=== PATIENT | female | born 1990 | race Caucasian/White ===

== ENCOUNTER → 2017-04-05 | Day surgery (SDC) | payer OTHER ==
[~2017-04-05] VITALS: Ht 157.5 cm; Wt 80.0 kg
[~2017-04-05] MED LIST: COSYNTROPIN INJ 1 MCG in SYRINGE 0 ML IV ONE; CYM/30 PO; LORA-741 PO; OMEP40CA41 PO; estrogen patch TD; progesterone TOP
[2017-04-05 07:39] VITALS: BP 128/77; PULSE 82; TEMP 36.6; O2SAT 97; Ht 157.5 cm; Wt 80.0 kg
[2017-04-05 08:55] LABS: ESTIMATED AVERAGE GLUCOSE 114 mg/dl; HA1C FLAG Normal (Normal)
[2017-04-05 09:03] LABS: BUN/CREATININE RATIO 9.2 (10-20); CALCIUM 8.9 mg/dl (8.5-10.1); CREATININE 0.84 mg/dl (0.60-1.20); POTASSIUM 3.4 mmol/L (3.5-5.1)
[2017-04-05 09:19] LABS: ALB/GLOB RATIO 1.2 (0.9-2); PHOSPHORUS 3.6 mg/dl (2.5-4.9); THYROID STIMULATING HORMONE 1.34 uIu/ml (0.300-4.500)
[2017-04-05 09:46] LABS: PROLACTIN 3.48 ng/mL
[2017-04-11 12:23] LABS: INSULIN LIKE GROWTH FACTOR-I 162 ng/mL (63-373); TESTOSTERONE,TOTAL 14 ng/dL (2-45)
== END | disposition home or self-care (01) ==
LOC: C.MTU 07:24
PROVIDERS: ATTEND Internal Medicine Endocrinology, Diabetes & Metabolism
DX: R53.83 Other fatigue (principal); E27.49 Other adrenocortical insufficiency

== ENCOUNTER → 2017-06-06 | Outpatient (CLI) | payer OTHER ==
[~2017-06-06] MED LIST changes: -COSYNTROPIN INJ 1 MCG in SYRINGE 0 ML IV ONE
== END | disposition home or self-care (01) ==
LOC: C.PAPS 14:11
PROVIDERS: ATTEND Obstetrics & Gynecology
DX: Z01.419 Encounter for gynecological examination (general) (routine) without abnormal findings (principal)

== ENCOUNTER → 2018-07-08 | Outpatient (CLI) | payer OTHER | END | disposition home or self-care (01) | LOC: C.LAB 14:45 | PROVIDERS: ATTEND Family Medicine | DX: N39.0 Urinary tract infection, site not specified (principal) ==

== ENCOUNTER 2023-11-28 17:14 | Inpatient (IN) ==
--- NOTE | 2023-11-28 17:29 | ED Triage Note ---
Date of Service November 28, 2023 Provider in Triage Author: Carlos Hdez History of Present Illness This patient was briefly evaluated while in triage. An abbreviated physical exam was performed. This patient is a 33-year-old Female who presents to the ED for evaluation of: Woke up with L arm pain yesterday am. Described as esther horse in left arm. Notes numbness and tingling. Tried OTC medicines and minimal help/relief. Seen by chiropractor. Seen in [facility] ED yesterday and had injection of muscle relaxer and toradol, Lortab. Shoulder xray and discharged home. Back to chiropractor. Cervical traction relieved pain. Iced and placed on prediosone, lortab and flexeril. Today back to chiropractor. Had cervical traction and return of pain. Fingers tingling and numb. Started yesterday AM. Physical Exam GENERAL: 33 year old female. In no acute distress. SKIN: No lesions or rashes. HEART: Regular rate and rhythm. LUNGS: Clear to auscultation. NEURO: Alert and oriented. No deficits. MUSCULOSKELETAL: No deformities to inspection of the extremities. PSYCH: Patient is pleasant and answers all questions appropriately. Initial orders for labs and / or imaging were placed. MRI of neck felt to be war ranted.
[2023-11-28] MEDS ORDERED: diazePAM 5 MG TABLET PO ONE (18:16)
[2023-11-28 18:34] LABS: Basophils # (auto) 0.02 K/uL (0.00-0.20); Basophils % (auto) 0.2 %; Hematocrit (blood only) 34.4 % (37.0-47.0); Hemoglobin 12.1 g/dl (12.0-16.0); Immature Granulocytes # (auto) 0.06 K/uL (0.01-0.20); Immature Granulocytes % (auto) 0.5 %; Lymphocytes # (auto) 1.49 K/uL (1.20-3.40); Mean Corpuscular Hemoglobin 31.8 pg (25.0-34.0); Mean Corpuscular Hgb Conc 35.2 g/dL (32.0-36.0); Mean Corpuscular Volume 90.3 fL (80.0-100.0); Mean Platelet Volume 10.7 fL (9.4-12.4); Monocytes # (auto) 0.55 K/uL (0.11-0.59); Monocytes % (auto) 4.4 %; Neutrophils # (auto) 10.26 K/uL (1.40-6.50); Neutrophils % (auto) 82.9 %; Platelet Count 285 K/uL (130-400); RDW Coefficient of Variation 12.8 % (11.5-14.5); RDW Standard Deviation 41.7 fL (36.4-46.3); Red Blood Count 3.81 M/uL (4.20-5.40); White Blood Count 12.38 K/ul (4.8-10.8)
[2023-11-28 18:52] LABS: Alanine Aminotransferase 33 U/L (7-52); Albumin Globulin Ratio 1.5 (0.9-2); Albumin Level 4.6 gm/dl (3.4-5.0); Alkaline Phosphatase 62 U/L (34-104); Anion Gap 9 (3-11); Aspartate Aminotransferase 37 U/L (13-39); BUN Creatinine Ratio 8.8 (10-20); Bilirubin,Total 0.3 mg/dl (0.2-1.0); Blood Urea Nitrogen 7 mg/dl (6-23); Calcium 9.4 mg/dl (8.6-10.3); Carbon Dioxide 27 mmol/L (21-32); Chloride 105 mmol/L (98-107); Est GFR (African American) 111.5 ml/min; Est GFR (Non-African American) 96.2 ml/min; Globulin 3.1 gm/dl (2.5-4.0); Glucose 89 mg/dl (70-99(Fasting)); Potassium 3.1 mmol/L (3.5-5.1); Sodium 141 mmol/L (136-145); Total Protein 7.7 gm/dl (6.0-8.3)
[2023-11-28] MEDS ORDERED: HYDROmorphone INJ 0.5 MG/0.5 ML SYR IV STA ×4 (18:57→23:46)
[2023-11-28] MEDS ORDERED: ONDANSETRON INJ 2 MG/ML 2 ML VIAL IV STA (18:58)
[2023-11-28] MEDS ORDERED: dexAMETHasone**PF** 10 MG/ML VIAL IV ONE (19:10)
--- NOTE | 2023-11-28 19:20 | Emergency Department Note ---
History of Present Illness General Chief complaint: Neuro Symptoms/Deficit Stated complaint: LT ARM NUMB/PAINFUL, WEAKNESS, NECK PAIN Time Seen by Provider: 11/28/23 17:30 History of Present Illness Maximum Pain Intensity: 9 This is a 33-year-old female that presents to the emergency department via private vehicle with complaints of "left-sided neck/left arm pain". Patient notes that this past Sunday morning she awoke with discomfort in the left shoulder region that radiated down the left arm. She notes the pain is severe and when she lifts the left arm and hold it over her head the pain is more of a throbbing sensation and is more bearable than when the arm is dependently positioned at her side. She has been seen by her chiropractor x 2 for evaluation of this and notes that when cervical traction is applied pain is completely alleviated however when the traction is stopped the pain returns. She notes that she was seen at the [place] emergency department yesterday and had injection of a muscle relaxer, Toradol and oral Lortab. She had a shoulder x-ray and she notes she was discharged home. She states that pain continues and is severe. She denies any fevers or chills. No vomiting. No chest pain or shortness of breath. No speech trouble or weakness. She does note that the pain radiates from the left side of the neck down the left arm and she has numbness/tingling in fingers 2 through 5 of the left hand. Home Medications Medication Instructions Recorded Confirmed Type Vitamin D, Zinc & Vitamin C 1 tab PO DAILY 11/28/23 11/29/23 History bupropion HCl 150 mg tablet,12 hr 300 mg PO QAM 11/28/23 11/28/23 History sustained-release cyclobenzaprine 10 mg tablet 10 mg PO DIRECTED PRN Muscle 11/28/23 11/28/23 History Spasm estradiol 1 mg tablet 1 mg PO DAILY 11/28/23 11/28/23 History famotidine 40 mg tablet 40 mg PO DAILY PRN Acid Reflux 11/28/23 11/29/23 History hydrocodone 5 mg-acetaminophen 325 1 tab PO Q6 PRN Pain 11/28/23 11/29/23 History mg tablet levothyroxine 75 mcg tablet 75 mcg PO DAILY 11/28/23 11/29/23 History linaclotide 72 mcg capsule 72 mcg PO DAILY 11/28/23 11/29/23 History (Linzess) naltrexone 50 mg tablet 50 mg PO DAILY 11/28/23 11/29/23 History pantoprazole 40 mg tablet,delayed 40 mg PO DAILY 11/28/23 11/28/23 History release prednisone 20 mg tablet 20 mg PO BID 11/28/23 11/28/23 History simvastatin 5 mg tablet 5 mg PO HS 11/28/23 11/28/23 History triamcinolone acetonide 0.1 % 1 applic topical DIRECTED PRN 11/28/23 11/28/23 History topical cream .flare ups Allergies Allergy/AdvReac Type Severity Reaction Status Date / Time cefaclor [From [facility]] Allergy Mild Hives/Rash Verified 11/29/23 00:05 nickel Allergy Mild RASH, Verified 11/29/23 00:05 itch, skin irritation Past Med/Surg History Medical History Hyperlipidemia History of COVID-19 10/31/2021 - mild symptoms fatigue, sob and no current issues Chronic constipation GERD (gastroesophageal reflux disease) 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 she is tolerating thyroid medications Depression Anxiety Surgical History Hx of colonoscopy Hx of esophagogastroduodenoscopy History of tonsillectomy and adenoidectomy Hx of laparoscopy endometriosis, ovarian cystectomy Hx of exploratory laparotomy after c section hemorrhage second laparotomy to remove uterus, tubes, ovaries Hx of section complication due to bleeding, had laparotomy and could not find the source of bleeding and was lifeflighted to [place] - possible cardiac arrest on flight [place] and had muliple transfusions (34 units in 24 hrs) and was on vent and had intervention radiology procedure to repair right uterine artery and then EUA and found laceration on cervix and then repaired it. was stabilized that evening and the next day taken to OR for hysterectomy and tubes and ovaries were removed History of hysterectomy was post childbirth c section complication hemorrage Social History Smoking Status: Current every day smoker Tobacco Type: E-cigarettes / Vaping packs per day: 0.1; Cigarettes Per Day: 2-3 days; Second Hand Exposure: No; Do You Dip or Chew Tobacco: No; Hx Alcohol Use: Yes Alcohol type: beer and wine Hx Substance Use: No Preferred Language: Argentine Communication Ability: Effective Chemical Research Worker Required: No Beliefs That Will Affect Care: None Current Living Situation: Family current occupational status: employed Other Information That Helps Us Care for You: No Feels Safe at Home: Yes Safety Concerns: Feels Safe At This Time Assistive Devices: Glasses Review of Systems A total of 10 systems reviewed and were otherwise negative Physical Exam Vital Signs Vital Signs - 24 hr 11/28/23 17:25 11/28/23 19:22 11/28/23 19:22 Temperature 36.2 C L Temperature Source Temporal Artery Scan Pulse Rate 116 H Pulse Rate [Finger] Respiratory Rate 20 Respiratory Depth Blood Pressure 126/84 Blood Pressure [Left Arm] Blood Pressure Mean 98 Blood Pressure Mean [Left Arm] Blood Pressure Position [Left Arm] Pulse Oximetry 100 98 Oxygen Delivery Method Room Air Room Air Room Air Sepsis Recent Fever Within 48 Hours No Sepsis New/Unexplained Change in Mental Status N/A Sepsis Action Taken by Nursing No Action Required 11/28/23 23:40 Temperature Temperature Source Pulse Rate Pulse Rate [Finger] 84 Respiratory Rate 18 Respiratory Depth Normal Blood Pressure Blood Pressure [Left Arm] 128/77 Blood Pressure Mean Blood Pressure Mean [Left Arm] 94 Blood Pressure Position [Left Arm] Semi-fowlers Pulse Oximetry 100 Oxygen Delivery Method Room Air Sepsis Recent Fever Within 48 Hours Sepsis New/Unexplained Change in Mental Status Sepsis Action Taken by Nursing VITAL SIGNS - Vital signs and nursing notes were reviewed. Stable and afebrile. GENERAL -33-year-old female appearing her stated age who appears to be in pain and is tearful. Communicates well with provider and answers questions appropriately. SKIN - Without rashes. No meningeal or petechial rash. The skin overlying the neck and arm is unremarkable. No erythema or edema. HEAD - NC/AT. EYES - PERRL with EOMI bilaterally. Sclera anicteric. EARS - No deformities of external structures noted on gross examination bilaterally. NOSE - Midline and without cyanosis. No epistaxis or purulent drainage noted. MOUTH/OROPHARYNX - Without perioral cyanosis. NECK - No nuchal rigidity. There is tenderness and palpable spasm throughout the trapezius muscle superiorly on the left extending from the paraspinous musculature of the C-spine towards the left shoulder. No C-spine tenderness. LUNGS - Chest wall symmetric without accessory muscle use, intercostals retractions, or central cyanosis. Normal vesicular breath sounds CTA B/L. No wheezes, rales, or rhonchi appreciated. CARDIAC - RRR with S1/S2. No murmur, rubs, or gallops appreciated. EXTREMITIES - No clubbing or peripheral cyanosis. Preserved full active range of motion of left upper extremity, specifically left shoulder without reproduction of symptoms. Left bicep reflex within normal limits. Biodiesel Production Technician strength on the left mildly decreased compared to the right on initial assessment however will note that after pain medicine was administered as well as steroids reassessment reveals symmetric soda dispenser strength bilaterally. NEUROLOGIC - Cranial nerves II through XII grossly intact. PSYCH - A&Ox3 and cooperates fully with examiner. Pt is very pleasant and interacts well with examiner. Course Administered Medications Acetaminophen (Acetaminophen 500 Mg Tab) 1,000 mg PO Q8H MEENU Stop: 12/29/23 00:59 Last Admin: 11/29/23 00:58 Dose: 1,000 mg Documented By: ROSE MARIE Hydromorphone HCl (Hydromorphone Inj 0.5 Mg/0.5 Ml Syr) 0.5 mg IV Q6H PRN PRN Reason: Pain Stop: 12/13/23 00:33 Last Admin: 11/29/23 02:38 Dose: 0.5 mg Documented By: AUSTIN Ketorolac Tromethamine (Ketorolac Tromethamine 15 Mg/Ml Vial) 15 mg IV Q6H MEENU Stop: 11/29/23 20:01 Last Admin: 11/29/23 02:02 Dose: 15 mg Documented By: AUSTIN Polyethylene Glycol (Polyethylene (Miralax) 17 Gm Pack) 17 gm PO DAILY PRN PRN Reason: Constipation Stop: 12/29/23 00:33 Last Admin: 11/29/23 02:38 Dose: 17 gm Documented By: AUSTIN Discontinued Medications Acetaminophen (Acetaminophen 500 Mg Tab) 500 mg PO NOW STA Stop: 11/28/23 20:29 Last Admin: 11/28/23 20:37 Dose: 500 mg Documented By: LUANA Dexamethasone Sodium Phosphate (DexamethasonePf 10 Mg/Ml Vial) 10 mg IV NOW ONE Stop: 11/28/23 19:11 Last Admin: 11/28/23 19:14 Dose: 10 mg Documented By: KATIE Diazepam (Diazepam 5 Mg Tablet) 5 mg PO NOW ONE Stop: 11/28/23 18:17 Last Admin: 11/28/23 18:22 Dose: 5 mg Documented By: HALIMA Hydromorphone HCl (Hydromorphone Inj 0.5 Mg/0.5 Ml Syr) 0.5 mg IV NOW STA Stop: 11/28/23 18:58 Last Admin: 11/28/23 19:03 Dose: 0.5 mg Documented By: KATIE Hydromorphone HCl (Hydromorphone Inj 0.5 Mg/0.5 Ml Syr) 0.25 mg IV NOW STA Stop: 11/28/23 20:29 Last Admin: 11/28/23 20:38 Dose: 0.25 mg Documented By: LUANA Hydromorphone HCl (Hydromorphone Inj 0.5 Mg/0.5 Ml Syr) 0.25 mg IV NOW STA Stop: 11/28/23 21:47 Last Admin: 11/28/23 21:52 Dose: 0.25 mg Documented By: KATIE Hydromorphone HCl (Hydromorphone Inj 0.5 Mg/0.5 Ml Syr) 0.25 mg IV NOW STA Stop: 11/28/23 23:47 Last Admin: 11/28/23 23:53 Dose: 0.25 mg Documented By: ROSE MARIE Hydroxyzine HCl (Hydroxyzine Hcl 25 Mg Tab) 25 mg PO NOW STA Stop: 11/29/23 00:44 Last Admin: 11/29/23 00:57 Dose: 25 mg Documented By: ROSE MARIE Ketorolac Tromethamine (Ketorolac Tromethamine 15 Mg/Ml Vial) 10 mg IV NOW ONE Stop: 11/28/23 20:29 Last Admin: 11/28/23 20:37 Dose: 10 mg Documented By: LUANA Lidocaine (Lidocaine 5% 1 Patch) 1 patch TD NOW STA Stop: 11/28/23 20:29 Last Admin: 11/28/23 20:37 Dose: 1 patch Documented By: LUANA Miscellaneous (Remove Lidoderm Patch) 1 each N/A DAILY@2100 MEENU Stop: 12/28/23 20:59 Last Admin: 11/28/23 23:02 Dose: Not Given Documented By: KATIE Ondansetron HCl (Ondansetron Inj 2 Mg/Ml 2 Ml Vial) 4 mg IV NOW STA Stop: 11/28/23 18:59 Last Admin: 11/28/23 19:03 Dose: 4 mg Documented By: KATIE Prednisone (Prednisone 20 Mg Tab) 40 mg PO NOW ONE Stop: 11/29/23 00:40 Last Admin: 11/29/23 00:57 Dose: 40 mg Documented By: ROSE MARIE Medical Decision Making Laboratory Data 11/28/23 18:14 11/28/23 18:14 Lab Results 11/28/23 Range/Units 18:14 WBC 12.38 H (4.8-10.8) K/ul RBC 3.81 L (4.20-5.40) M/uL Hgb 12.1 (12.0-16.0) g/dl Hct 34.4 L (37.0-47.0) % MCV 90.3 (80.0-100.0) fL MCH 31.8 (25.0-34.0) pg MCHC 35.2 (32.0-36.0) g/dL RDW Std Deviation 41.7 (36.4-46.3) fL RDW Coeff of Sarai 12.8 (11.5-14.5) % Plt Count 285 (130-400) K/uL MPV 10.7 (9.4-12.4) fL Immature Gran % (Auto) 0.5 % Neut % (Auto) 82.9 % Lymph % (Auto) 12.0 % [place] % (Auto) 4.4 % Eos % (Auto) 0.0 % Baso % (Auto) 0.2 % Neut # (Auto) 10.26 H (1.40-6.50) K/uL Lymph # (Auto) 1.49 (1.20-3.40) K/uL [place] # (Auto) 0.55 (0.11-0.59) K/uL Eos # (Auto) 0.00 (0.00-0.50) K/uL Baso # (Auto) 0.02 (0.00-0.20) K/uL Immature Gran # (Auto) 0.06 (0.01-0.20) K/uL Sodium 141 (136-145) mmol/L Potassium 3.1 L (3.5-5.1) mmol/L Chloride 105 (98-107) mmol/L Carbon Dioxide 27 (21-32) mmol/L Anion Gap 9 (3-11) BUN 7 (6-23) mg/dl Creatinine 0.80 (0.6-1.2) mg/dl Est Cr Clr Drug Dosing Not Reportable Est GFR ( Amer) 111.5 ml/min Est GFR (Non-Af Amer) 96.2 ml/min BUN/Creatinine Ratio 8.8 L (10-20) Glucose 89 (70-99(Fasting)) mg/dl Calcium 9.4 (8.6-10.3) mg/dl Total Bilirubin 0.3 (0.2-1.0) mg/dl AST 37 (13-39) U/L ALT 33 (7-52) U/L Alkaline Phosphatase 62 (34-104) U/L Total Protein 7.7 (6.0-8.3) gm/dl Albumin 4.6 (3.4-5.0) gm/dl Globulin 3.1 (2.5-4.0) gm/dl Albumin/Globulin Ratio 1.5 (0.9-2) Imaging Data Radiologist's Impression: Cervical Spine MRI 11/28/23 17:30 Exam(s): MRI C SPINE EXAM: MR Cervical Spine Without Intravenous Contrast CLINICAL HISTORY: Reason for exam: L sided neck and L arm pain, L hand numb, weakness. TECHNIQUE: Magnetic resonance images of the cervical spine without intravenous contrast in multiple planes. Mild to moderate motion artifact. COMPARISON: None. FINDINGS: Vertebrae: No marrow edema or compression deformity. Spinal cord: No abnormal signal. Soft tissues: No prevertebral or interspinous ligamentous edema. No epidural hematoma or abscess. DISCS/SPINAL CANAL/NEURAL FORAMINA: C2-C3: Unremarkable. C3-C4: Unremarkable. C4-C5: Mild degenerative disc disease. C5-C6: Moderate, broad-based left-sided disc herniation, contacts the ventral cord, with borderline left-central spinal stenosis, and severe left lateral recess and left foraminal stenosis. C6-C7: Mild degenerative disc disease. C7-T1: Unremarkable. OTHER: Disc heights are well preserved other than narrowing at C5-6. No other disc herniation. Other than the changes at C5-6, central canal is otherwise patent. Facet joints show mild hypertrophy. IMPRESSION: 1. At C5-6, there is a left sided disc herniation with borderline left- central spinal stenosis, severe left lateral recess and left foraminal stenosis. 2. Mild degenerative change C4-5 and C6-7. 3. No other disc herniation, central canal is otherwise patent. Electronically signed by: Pinky Denson M.D. 11/28/23 22:48 PM MDM Narrative Patient was seen and evaluated as above in room D05. Review was performed of triage nursing notes and vital signs. I did review pertinent previous visits and patient history. After obtaining a thorough history and physical examination the above work up was performed. Patient presents to us today for evaluation of left-sided neck pain that radiates down the left arm. Examination consistent with that of cervical radiculopathy. There is decreased soda dispenser strength on the left compared to the right on initial assessment. Patient is tearful and appears to be in a lot of pain. She was already evaluated at a hospital yesterday and given IM medications and oral analgesics at home and continues with severe pain. Options of care were discussed with the patient. IV access was established. Labs were drawn. There is mild leukocytosis 12.38 likely reactive to the patient's pain response/stress response as well as recent oral steroid use. The patient does have mild hypokalemia 3.1. No evidence of kidney or liver failure. She denies chance of noting hysterectomy. At this time we will proceed with MRI of the C-spine noting the patient's severity of pain and decreased soda dispenser strength on the left with examination consistent with that of cervical radiculopathy. During her time here in the ED she was managed with several medications to help alleviate her pain. The patient did note claustrophobia so therefore prior to MRI was given Valium. She noted she had Valium before for an MRI and had no issues. 5 mg was given here. She notes that the medicine did very little. She does not feel she would be able to lay flat or tolerate the MRI and is still in tears. At that time I did agree to a dose of IV analgesics but did wait some time to space the oral benzodiazepine from IV analgesics. The IV analgesics was provided and pulse oximetry monitoring was performed, no desaturations here in the ED. At this time we will proceed with cervical spine MRI. For safety, I did ask staff that the patient have monitoring well in the MRI scanner to ensure no hypoxia as she did receive medications here in the ED to help her symptoms. While in MRI the patient was monitored on pulse oximetry and reportedly there was a small episode of mild hypoxia and started on oxygen and continue to be monitored as I had requested. Patient continued to do very well with the MRI and upon return noted continued pain. MRI was ultimately read after some time revealing at C5-C6, left-sided disc herniation with borderline left central spinal stenosis, severe left lateral recess and left foraminal stenosis. This does fit with the patient's examination findings and history. The patient did recall that the day prior to the start of the symptoms she was carrying some totes on her head noting that the shelf is the same height as her head and she found it easier to place them on her head to carry them. I suspect this is likely contributory to her symptoms at this time. The patient despite several medications here continues with pain. In discussing options with the patient we will proceed with inpatient management for intractable pain. She also received steroids here. Case discussed with the hospitalist service. Please refer to further documentation regarding her stay. GCS: 15 In the evaluation and treatment of this patient the following differential diagnoses were entertained: Cervical radiculopathy, dissection, strain, sprain, infection, among others Impression & Plan Cervical herniated disc, Left cervical radiculopathy, Intractable cervical neuropathic pain, Abnormal magnetic resonance imaging of cervical spine Discharge Plan Visit Data Chief Complaint: Neuro Symptoms/Deficit Stated Complaint: LT ARM NUMB/PAINFUL, WEAKNESS, NECK PAIN ED Provider: Marcel Bender ED Midlevel Provider: Carlos Hdez Discharge Problem: Cervical herniated disc, Left cervical radiculopathy, Intractable cervical neuropathic pain, Abnormal magnetic resonance imaging of cervical spine Patient Disposition: Admitted As Inpatient Condition: Good Discharge Instructions Interventions: ED Discharge Assessment Last Done: 11/29/23 01:54
[2023-11-28] MEDS ORDERED: ACETAMINOPHEN 500 MG TAB PO STA (20:28)
[2023-11-28] MEDS ORDERED: LIDOCAINE 5% 1 PATCH TD STA (20:28)
[2023-11-28] MEDS ORDERED: KETOROLAC TROMETHAMINE 15 MG/ML VIAL IV ONE (20:28)
--- NOTE | 2023-11-28 22:50 | Magnetic Resonance Report ---
Exam(s): MRI C SPINE EXAM: MR Cervical Spine Without Intravenous Contrast CLINICAL HISTORY: Reason for exam: L sided neck and L arm pain, L hand numb, weakness. TECHNIQUE: Magnetic resonance images of the cervical spine without intravenous contrast in multiple planes. Mild to moderate motion artifact. COMPARISON: None. FINDINGS: Vertebrae: No marrow edema or compression deformity. Spinal cord: No abnormal signal. Soft tissues: No prevertebral or interspinous ligamentous edema. No epidural hematoma or abscess. DISCS/SPINAL CANAL/NEURAL FORAMINA: C2-C3: Unremarkable. C3-C4: Unremarkable. C4-C5: Mild degenerative disc disease. C5-C6: Moderate, broad-based left-sided disc herniation, contacts the ventral cord, with borderline left-central spinal stenosis, and severe left lateral recess and left foraminal stenosis. C6-C7: Mild degenerative disc disease. C7-T1: Unremarkable. OTHER: Disc heights are well preserved other than narrowing at C5-6. No other disc herniation. Other than the changes at C5-6, central canal is otherwise patent. Facet joints show mild hypertrophy. IMPRESSION: 1. At C5-6, there is a left sided disc herniation with borderline left- central spinal stenosis, severe left lateral recess and left foraminal stenosis. 2. Mild degenerative change C4-5 and C6-7. 3. No other disc herniation, central canal is otherwise patent. Electronically signed by: Pinky Denson M.D. 11/28/23 22:48 PM
--- NOTE | 2023-11-28 23:52 | History & Physical Report ---
Date of Service November 28, 2023 Assessment & Plan (1) Cervical herniated disc: Plan: Pt is a 33 yo female with PMH of hypothyroidism, HLD, GERD, and depression/anxiety presenting to the ER d/t increased neck/shoulder pain. Cervical herniated disc - noted at level C5-C6 on cervical MRI with associated left sided weakness and central spinal stenosis - s/p valium 5 mg, dilaudid 0.25mg x3, dilaudid 0.5mg, zofran 4 mg, dexamethasone 10 mg, toradol 10 mg, and tylenol 500 mg given in ED - continue pain control; tylenol 1000mg q8hr, toradol 15 mg q6hr x4, and dilaudid 0.5 mg q6hr PRN for breakthrough - given prednisone 40 mg x1 upon admission; may continue if felt to significantly help with the pain - ortho spine consulted in addition to pain management for possibility of injection Hypothyroidism - continue home levothyroxine 75 mcg daily GERD - continue home PPI and famotidine Chronic constipation - continue home linzess and miralax PRN 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 Pt states she woke up yesterday morning with left shoulder pain similar to a muscle spasm. She had numbness/tingling that radiated down her arm. She saw a chiropractor d/t this pain and he referred her to the [facility] ER; they gave her a muscle relaxer and steroid and discharged her home. She returned to her chiropractor who performed cervical traction and a gentle adjustment which helped in the moment but the pain came back upon sitting up. She went back to her chiropractor today and he again did cervical traction. This again helped in the moment but the pain came back after sitting up. She was in contact with her PCP who advised her to come to the ER for further work up. Since then, her pain has been worsening and unbearable at points. She is uncomfortable in a sitting position. Sometimes the pain is relieved when her hand is over her head, but now she is also experiencing a dull ache in this position. Upon further reflection, she is wondering if putting away her [employer] decorations on Sunday contributed to her current pain. She was on a 5- step ladder reaching to a shelf above her head and she would put the storage totes on top of her head to transfer them. Otherwise, no injury noted. No hx of neck/spine problems. In the ER, pt was hemodynamically stable. Her lab work was significant for WBC 12.38, Hgb 12.1, platelets 285, and K 3.1. An MRI of her cervical spine showed a left sided disc herniation at C5-C6 with borderline central spinal stenosis. There were degenerative changes noted at C4-C5 and C6-C7. Pt was given valium 5 mg, dilaudid 0.25mg x3, dilaudid 0.5mg, zofran 4 mg, dexamethasone 10 mg, toradol 10 mg, and tylenol 500 mg. Allergies Allergy/AdvReac Type Severity Reaction Status Date / Time cefaclor [From [facility]] Allergy Mild Hives/Rash Verified 11/29/23 00:05 nickel Allergy Mild RASH, Verified 11/29/23 00:05 itch, skin irritation Home Medications Medication Instructions Recorded Confirmed Type Vitamin D, Zinc & Vitamin C 1 tab PO DAILY 11/28/23 11/29/23 History bupropion HCl 150 mg tablet,12 hr 300 mg PO QAM 11/28/23 11/28/23 History sustained-release cyclobenzaprine 10 mg tablet 10 mg PO DIRECTED PRN Muscle 11/28/23 11/28/23 History Spasm estradiol 1 mg tablet 1 mg PO DAILY 11/28/23 11/28/23 History famotidine 40 mg tablet 40 mg PO DAILY PRN Acid Reflux 11/28/23 11/29/23 History hydrocodone 5 mg-acetaminophen 325 1 tab PO Q6 PRN Pain 11/28/23 11/29/23 History mg tablet levothyroxine 75 mcg tablet 75 mcg PO DAILY 11/28/23 11/29/23 History linaclotide 72 mcg capsule 72 mcg PO DAILY 11/28/23 11/29/23 History (Linzess) naltrexone 50 mg tablet 50 mg PO DAILY 11/28/23 11/29/23 History pantoprazole 40 mg tablet,delayed 40 mg PO DAILY 11/28/23 11/28/23 History release prednisone 20 mg tablet 20 mg PO BID 11/28/23 11/28/23 History simvastatin 5 mg tablet 5 mg PO HS 11/28/23 11/28/23 History triamcinolone acetonide 0.1 % 1 applic topical DIRECTED PRN 11/28/23 11/28/23 History topical cream .flare ups Past Med/Surg History Medical History Hyperlipidemia History of COVID-19 10/31/2021 - mild symptoms fatigue, sob and no current issues Chronic constipation GERD (gastroesophageal reflux disease) 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 she is tolerating thyroid medications Depression Anxiety Surgical History Hx of colonoscopy Hx of esophagogastroduodenoscopy History of tonsillectomy and adenoidectomy Hx of laparoscopy endometriosis, ovarian cystectomy Hx of exploratory laparotomy after c section hemorrhage second laparotomy to remove uterus, tubes, ovaries Hx of section complication due to bleeding, had laparotomy and could not find the source of bleeding and was lifeflighted to [place] - possible cardiac arrest on flight DIC and had muliple transfusions (34 units in 24 hrs) and was on vent and had intervention radiology procedure to repair right uterine artery and then EUA and found laceration on cervix and then repaired it. was stabilized that evening and the next day taken to OR for hysterectomy and tubes and ovaries were removed History of hysterectomy was post childbirth c section complication hemorrage Social History Smoking Status: Current every day smoker Tobacco Type: E-cigarettes / Vaping packs per day: 0.1; Cigarettes Per Day: 2-3 days; Second Hand Exposure: No; Do You Dip or Chew Tobacco: No; Hx Alcohol Use: Yes Alcohol type: beer and wine Hx Substance Use: No Preferred Language: Hungarian Communication Ability: Effective Dag Sprayer Required: No Beliefs That Will Affect Care: None Current Living Situation: Family current occupational status: employed Other Information That Helps Us Care for You: No Feels Safe at Home: Yes Safety Concerns: Feels Safe At This Time Assistive Devices: Glasses Review of Systems Review of Systems: As per HPI Physical Exam Physical Exam: Constitutional: well appearing, mild distress HEENT: normocephalic, no conjunctival injection CV: clinically well perfused Respiratory: no increased work of breathing MSK: no gross deformities noted Skin: warm, dry, no rashes Neuro: alert, oriented, left arm weakness noted. 3/5 strength with left arm flexion/extension and shoulder abduction all of which caused some pain in her neck. Right arm 5/5 strength. Psych: mood and affect congruent Results & Data Results & Data Vital Signs (Past 12 Hours) Vital Signs Temp Pulse Pulse Resp BP BP Pulse Ox 11/28/23 23:40 84 18 128/77 100 11/28/23 19:22 98 11/28/23 19:22 11/28/23 17:25 36.2 C L 116 H 20 126/84 100 O2 Del Method 11/28/23 23:40 Room Air 11/28/23 19:22 Room Air 11/28/23 19:22 Room Air 11/28/23 17:25 Room Air Supervising Physician Co-Signing Physician Notes Patient seen and examined, chart reviewed, case discussed with Dr. Jensen and I agree with the assessment and plan as above Resident Activity Tracking Resident Involvement: Resident Care Provided Care Provided: Adult Hospital Medicine
[2023-11-29] MEDS ORDERED: MELATONIN 3 MG TAB PO PRN (00:34)
[2023-11-29] MEDS ORDERED: predniSONE 20 MG TAB PO ONE (00:39)
[2023-11-29] MEDS ORDERED: hydrOXYzine HCl 25 MG TAB PO STA (00:43)
[2023-11-29] MEDS: ACETAMINOPHEN 500 MG TAB PO SCH ×4 (00:58→23:50)
[2023-11-29] MEDS ORDERED: CYCLOBENZAPRINE HCL 10 MG TAB PO PRN (01:56)
[2023-11-29] MEDS ORDERED: FAMOTIDINE 40 MG TABLET PO PRN (01:56)
[2023-11-29] MEDS: KETOROLAC TROMETHAMINE 15 MG/ML VIAL IV SCH ×2 (02:02→07:42)
[2023-11-29] MEDS: POLYETHYLENE (MIRALAX) 17 GM PACK PO PRN (02:38)
[2023-11-29] MEDS: HYDROmorphone INJ 0.5 MG/0.5 ML SYR IV PRN ×4 (02:38→20:57)
--- NOTE | 2023-11-29 03:39 | Billing Data ---
Date of Service November 29, 2023 Coding Level of Care Code 41275 INT INP/OBS CARE
[2023-11-29] MEDS: LEVOTHYROXINE SODIUM 75 MCG TABLET PO SCH (06:21)
[2023-11-29] MEDS: buPROPion SR 150 MG TABCR PO SCH (08:28)
[2023-11-29] MEDS: PANTOprazole 40 MG TAB PO SCH (08:29)
[2023-11-29] MEDS: linaCLOtide 72 MCG CAPSULE PO SCH (08:29)
[2023-11-29] MEDS: estradioL 1 MG TAB PO SCH (08:29)
--- NOTE | 2023-11-29 08:53 | Orthopedic Consultation ---
Date of Consultation November 29, 2023 Assessment & Plan (1) Herniation of cervical intervertebral disc with radiculopathy: MRI of the cervical spine performed yesterday is available for review demonstrates massive disc herniation C5-C6 on the left. There is cord displacement. There is severe neuroforaminal encroachment on the left. Plan I had a lengthy discussion today with the patient reviewing her MRI findings and clinical presentation. This time her options are to continue with pain management interventional pain management or ultimately surgical intervention surgery in her case would require an anterior cervical discectomy and fusion to adequately decompress the canal and neuroforamen. This point she is going to consider her options most likely pursue cervical epidurals. If she fails to improve we may have to consider surgical invention. History of Present Illness Reason for Consultation: Neck and left arm pain Attending Physician: Jayson Bush MD History of Present Illness This is a very pleasant 33-year-old female who presents with severe left arm pain. She states the symptoms began on Sunday. She did attempt to few sessions of patient care provider which did not alleviate her symptom complex. The pain is described as radiating down the left interscapular region down the lateral arm below the elbow into the lateral fingers. The right upper extremity symptomatic. She is left-hand dominant. She denies any specific trauma fall or event. She does find comfort holding her arm and particularly in the shoulder abduction position. Allergies Allergy/AdvReac Type Severity Reaction Status Date / Time cefaclor [From [facility]] Allergy Mild Hives/Rash Verified 11/29/23 00:05 nickel Allergy Mild RASH, Verified 11/29/23 00:05 itch, skin irritation Home Medications Medication Instructions Recorded Confirmed Type Vitamin D, Zinc & Vitamin C 1 tab PO DAILY 11/28/23 11/29/23 History bupropion HCl 150 mg tablet,12 hr 300 mg PO QAM 11/28/23 11/28/23 History sustained-release cyclobenzaprine 10 mg tablet 10 mg PO DIRECTED PRN Muscle 11/28/23 11/28/23 History Spasm estradiol 1 mg tablet 1 mg PO DAILY 11/28/23 11/28/23 History famotidine 40 mg tablet 40 mg PO DAILY PRN Acid Reflux 11/28/23 11/29/23 History hydrocodone 5 mg-acetaminophen 325 1 tab PO Q6 PRN Pain 11/28/23 11/29/23 History mg tablet levothyroxine 75 mcg tablet 75 mcg PO DAILY 11/28/23 11/29/23 History linaclotide 72 mcg capsule 72 mcg PO DAILY 11/28/23 11/29/23 History (Linzess) naltrexone 50 mg tablet 50 mg PO DAILY 11/28/23 11/29/23 History pantoprazole 40 mg tablet,delayed 40 mg PO DAILY 11/28/23 11/28/23 History release prednisone 20 mg tablet 20 mg PO BID 11/28/23 11/28/23 History simvastatin 5 mg tablet 5 mg PO HS 11/28/23 11/28/23 History triamcinolone acetonide 0.1 % 1 applic topical DIRECTED PRN 11/28/23 11/28/23 History topical cream .flare ups Patient History Medical History Hyperlipidemia History of COVID-19 10/31/2021 - mild symptoms fatigue, sob and no current issues Chronic constipation GERD (gastroesophageal reflux disease) 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 she is tolerating thyroid medications Depression Anxiety Surgical History Hx of colonoscopy Hx of esophagogastroduodenoscopy History of tonsillectomy and adenoidectomy Hx of laparoscopy endometriosis, ovarian cystectomy Hx of exploratory laparotomy after c section hemorrhage second laparotomy to remove uterus, tubes, ovaries Hx of section complication due to bleeding, had laparotomy and could not find the source of bleeding and was lifeflighted to [place] - possible cardiac arrest on flight DIC and had muliple transfusions (34 units in 24 hrs) and was on vent and had intervention radiology procedure to repair right uterine artery and then EUA and found laceration on cervix and then repaired it. was stabilized that evening and the next day taken to OR for hysterectomy and tubes and ovaries were removed History of hysterectomy was post childbirth c section complication hemorrage Social History Smoking Status: Current every day smoker Tobacco Type: E-cigarettes / Vaping packs per day: 0.1; Cigarettes Per Day: 2-3 days; Second Hand Exposure: No; Do You Dip or Chew Tobacco: No; Hx Alcohol Use: Yes Alcohol type: beer and wine Hx Substance Use: No Preferred Language: Luxembourgish Communication Ability: Effective Shower Screen Installer Required: No Beliefs That Will Affect Care: None Current Living Situation: Family current occupational status: employed Other Information That Helps Us Care for You: No Feels Safe at Home: Yes Safety Concerns: Feels Safe At This Time Assistive Devices: Glasses Physical Exam Physical Exam: On exam she is in obvious distress. She exhibits reasonable +5-5 grasp biceps triceps deltoids bilaterally. Sensory is somewhat diminished to the left upper extremity compared to the right. She is positive Spurling sign. She has a positive shoulder abduction sign to the left. Results & Data Vital Signs (Past 12 Hours) Vital Signs Temp Pulse Resp BP Pulse Ox O2 Del Method 11/29/23 07:30 36.3 C L 78 18 108/69 100 Room Air 11/29/23 02:06 36.6 C 78 16 121/81 98 Room Air 11/28/23 23:40 84 18 128/77 100 Room Air
[2023-11-29] MEDS ORDERED: POTASSIUM CHLORIDE CRTAB 20 MEQ TABCR PO STA (09:03)
--- NOTE | 2023-11-29 11:07 | Pain Management Consultation ---
Date of Consultation November 29, 2023 Assessment & Plan (1) Herniation of cervical intervertebral disc with radiculopathy: (2) Left cervical radiculopathy: (3) Anxiety: Plan 1. We reviewed MRI findings and her symptomatic presentation as well as treatment options at length. We discussed pursuing C7-T1 interlaminar LEONARDA. Side effects versus benefits discussed. All of her questions were answered. Patient elects to proceed with the procedure which will be completed tomorrow and special procedures at [address] Vásquez. Patient will be made n.p.o. after midnight 2. Will hold Toradol pending LEONARDA tomorrow 3. Patient may utilize hydrocodone 5/325 1 tablet p.o. every 6 hours. for breakthrough pain. Will adjust Tylenol to 500 mg every 8 hours as needed due to concomitant utilization of hydrocodone/APAP 4. Patient may utilize diazepam preprocedurally 5. 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 She reported onset of her pain 2-3 days ago without known injury which has been fairly persistent. She does recall performing some lifting activities ([employer]) 1-2 days prior to onset of her symptoms but denied any acute injury at the time of the lifting activity. She describes the pain as aching, burning and spasming in characteristic ranging between a 6-9/10. The pain is in the left axial neck extending in the shoulder and traveling into the left upper extremity to her hand with 4 fingers (second through fifth) experiencing paresthesias. She was evaluated emergently at [facility] and by her chiropractor over the past couple of days with minimal improvement from treatment. Due to her persisting pain complaints she was admitted yesterday and given some IV/oral steroids and muscle relaxers with minimal relief of symptoms. She denies any right upper extremity radicular pattern pain or paresthesia. She is describing some weakness of the left hand/arm potentially secondary to apprehensive movement due to pain and discomfort. She finds some relief with raising her left arm above her head while lying supine. Patient was evaluated by Dr. Cotton as well who discussed surgical intervention should she fail conservative management. MRI was completed of the cervical spine which revealed a left-sided disc herniation at C5-6. Patient has no further constitutional complaints. Plan of care discussed with Dr. Anette Smith. Pain Assessment Full Body Front + Back: 2 1. Neck/shoulder 2. Left upper extremity radicular pain Pain scale - at its best (0-10): 6 Pain scale - at its worst (0-10): 9 Allergies Allergy/AdvReac Type Severity Reaction Status Date / Time cefaclor [From [facility]] Allergy Mild Hives/Rash Verified 11/29/23 00:05 nickel Allergy Mild RASH, Verified 11/29/23 00:05 itch, skin irritation Home Medications Medication Instructions Recorded Confirmed Type Vitamin D, Zinc & Vitamin C 1 tab PO DAILY 11/28/23 11/29/23 History bupropion HCl 150 mg tablet,12 hr 300 mg PO QAM 11/28/23 11/28/23 History sustained-release cyclobenzaprine 10 mg tablet 10 mg PO DIRECTED PRN Muscle 11/28/23 11/28/23 History Spasm estradiol 1 mg tablet 1 mg PO DAILY 11/28/23 11/28/23 History famotidine 40 mg tablet 40 mg PO DAILY PRN Acid Reflux 11/28/23 11/29/23 History hydrocodone 5 mg-acetaminophen 325 1 tab PO Q6 PRN Pain 11/28/23 11/29/23 History mg tablet levothyroxine 75 mcg tablet 75 mcg PO DAILY 11/28/23 11/29/23 History linaclotide 72 mcg capsule 72 mcg PO DAILY 11/28/23 11/29/23 History (Linzess) naltrexone 50 mg tablet 50 mg PO DAILY 11/28/23 11/29/23 History pantoprazole 40 mg tablet,delayed 40 mg PO DAILY 11/28/23 11/28/23 History release prednisone 20 mg tablet 20 mg PO BID 11/28/23 11/28/23 History simvastatin 5 mg tablet 5 mg PO HS 11/28/23 11/28/23 History triamcinolone acetonide 0.1 % 1 applic topical DIRECTED PRN 11/28/23 11/28/23 History topical cream .flare ups Pain History Pain Intensity Pain scale - at its best (0-10): 6 Pain scale - at its worst (0-10): 9 Patient History Medical History Hyperlipidemia History of COVID-19 10/31/2021 - mild symptoms fatigue, sob and no current issues Chronic constipation GERD (gastroesophageal reflux disease) 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 she is tolerating thyroid medications Depression Anxiety Surgical History Hx of colonoscopy Hx of esophagogastroduodenoscopy History of tonsillectomy and adenoidectomy Hx of laparoscopy endometriosis, ovarian cystectomy Hx of exploratory laparotomy after c section hemorrhage second laparotomy to remove uterus, tubes, ovaries Hx of section complication due to bleeding, had laparotomy and could not find the source of bleeding and was lifeflighted to [place] - possible cardiac arrest on flight DIC and had muliple transfusions (34 units in 24 hrs) and was on vent and had intervention radiology procedure to repair right uterine artery and then EUA and found laceration on cervix and then repaired it. was stabilized that evening and the next day taken to OR for hysterectomy and tubes and ovaries were removed History of hysterectomy was post childbirth c section complication hemorrage Social History Smoking Status: Current every day smoker Tobacco Type: E-cigarettes / Vaping packs per day: 0.1; Cigarettes Per Day: 2-3 days; Second Hand Exposure: No; Do You Dip or Chew Tobacco: No; Hx Alcohol Use: Yes Alcohol type: beer and wine Hx Substance Use: No Preferred Language: Citizen Of [place] Communication Ability: Effective Leather Etcher Required: No Beliefs That Will Affect Care: None Current Living Situation: Family current occupational status: employed Other Information That Helps Us Care for You: No Feels Safe at Home: Yes Safety Concerns: Feels Safe At This Time Assistive Devices: Glasses Physical Exam 2 Physical Exam: General: Patient sitting quietly in exam room in no acute distress. Speech and thought process appropriate. Mood and affect appropriate. Cognition intact. Patient frequently weepy and anxious throughout the visit. Head: Normocephalic and atraumatic. ENT: No evidence of nasal or oral mucosal lesions. Mucous membranes are moist. Eyes: Pupils equal round reactive to light. Neck: Supple without adenopathy and full range of motion. Patient is tender over the left cervical paravertebral muscular extending into the trapezius. Spurling's maneuver was positive on the left and negative on the right. Increased left-sided axial pain with right-sided lateral rotation and ear to shoulder maneuvering. Extension or flexion were limited. Upper extremity: Strength testing was 4+/5 on the left with handgrip and biceps/triceps maneuvering. Strength 5/5 in the right. All other strength 5/5 and equal bilaterally. Nikole sign negative bilaterally. Slightly decreased sensation to sharp on the left in a nondermatomal pattern affecting the hand. No evidence of thenar or intrinsic muscular atrophy. DTRs 1+ at the biceps, brachioradialis and triceps and equal bilaterally. Neurologic: Cranial nerves grossly intact. Ambulatory function not witnessed. Results (Pain Clinic) Diagnostic Review MRI Findings: [place], [place] [phone] Magnetic Resonance Report Patient: JANUARY CRUZ Admit Date: 11/28/23 MR#: [id number] Address[address]: [address] Acct ID:[id number] Address2: Date: 1990 [facility] [address] Age: 33 Location: ED Sex: F Room/Bed: Att Phy: Diagnosis: LT ARM NUMB/PAINFUL, WEAKNESS, NECK PAIN Mimi Phy: Gómez Valderrama M.D. Service Date: 11/28/23 [facility] Phy: Interpreting Phy: Pinky Denson [facility] Phy: Ordering Phy: Carlos Hdez PA-C cc: ~ Exam(s): MRI C SPINE EXAM: MR Cervical Spine Without Intravenous Contrast CLINICAL HISTORY: Reason for exam: L sided neck and L arm pain, L hand numb, weakness. TECHNIQUE: Magnetic resonance images of the cervical spine without intravenous contrast in multiple planes. Mild to moderate motion artifact. COMPARISON: None. FINDINGS: Vertebrae: No marrow edema or compression deformity. Spinal cord: No abnormal signal. Soft tissues: No prevertebral or interspinous ligamentous edema. No epidural hematoma or abscess. DISCS/SPINAL CANAL/NEURAL FORAMINA: C2-C3: Unremarkable. C3-C4: Unremarkable. C4-C5: Mild degenerative disc disease. C5-C6: Moderate, broad-based left-sided disc herniation, contacts the ventral cord, with borderline left-central spinal stenosis, and severe left lateral recess and left foraminal stenosis. C6-C7: Mild degenerative disc disease. C7-T1: Unremarkable. OTHER: Disc heights are well preserved other than narrowing at C5-6. No other disc herniation. Other than the changes at C5-6, central canal is otherwise patent. Facet joints show mild hypertrophy. IMPRESSION: 1. At C5-6, there is a left sided disc herniation with borderline left- central spinal stenosis, severe left lateral recess and left foraminal stenosis. 2. Mild degenerative change C4-5 and C6-7. 3. No other disc herniation, central canal is otherwise patent. Electronically signed by: Pinky Denson M.D. 11/28/23 22:48 PM Dictated: 11/28/238 Transcribed: 11/28/23 2248
--- NOTE | 2023-11-29 13:01 | Hospitalist Progress Note ---
Date of Service November 29, 2023 Assessment & Plan (1) Cervical herniated disc: Plan: - Cspine MRI: C5-C6 moderated left sided disc herniation contacts the ventral cord, with borderline left central spinal stenosis and severe left lateral recess and left foraminal stenosis - Acute onset on 11/27 after moving bins of [employer] - given prednisone 40mg x1 - Ortho-spine consulted - Discussion of surgery vs injections, pt prefers injections first - Pain management consulted - Plan for cervical epidural steroid injection 11/30 - Pain control with Tylenol q8, [place] q6 prn and Dilaudid q6 prn - Flexeril 10mg TID prn - Valium prn for anxiety (2) GERD (gastroesophageal reflux disease): Plan: - continue home PPI and famotidine (3) Central hypothyroidism: Plan: - continue home levothyroxine 75 mcg TSH with am labs (4) Depression: Plan: Continue Wellbutrin (5) Anxiety: Plan: Continue Wellbutrin -worsened by inpatient stay, pain and medical hx - Offered consult to behavioral health liaison and she declined at present, aware she can change her mind at any time (6) Chronic constipation: Plan: Continue Linzess PRN miralax (7) History of hysterectomy: Plan: 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 - continue home estradiol 1 mg Plan DVT proh: low risk Diet: NPO at midnight Dispo: continued inpatient stay for pain control, plan for cervical epidural tomorrow Admission and Anticipated Discharge Date Admission Date: November 29, 2023 Supervising Physician Co-Signing Physician Notes Attending Attestation - Chart reviewed, care plan d/w DAMARI Del Angel. I agree w/ the kc components of her documentation. Jayson Bush MD Subjective Patient lying in bed. Reports that she was able to get about 3.5 hours of sleep last night. Pain is control is improving but still gets spasms. Has seen ortho- spine and pain management this morning, wanting to try injections but is very hesitant to have this done outpatient as she is currently requiring IV Pain medication and feels like she would likely just end up back in the ER. Reports looking to the right makes pain worse. Pain improves with raising her arms. Decreased appetite. Deals with chronic constipation since age 18, takes Linzess. Relatively well controlled when she takes as prescribed reports her thyroid has been well controlled. Has hx of near experience after delivering her son 7 years ago, requiring life flight, 34 units of blood and 6+ months of wound healing. being in the hospital brings her alot of increased anxiety. Before pain started she was feeling a little below baseline. Reports she also has seasonal depression. Has been taking Wellbutrin. No suicidal thoughts. Review of Systems Review of Systems: All systems reviewed & are unremarkable except as noted in Subjective Physical Exam Physical Exam: General: clearly in pain, tearful at times, VS as above Resp: normal respiratory effort, lungs clear to auscultation CV: RRR, no murmur, Abd: normal bowel sounds, non tender, no hepatosplenomegaly vertical scar Extremities: Moves all extremities. 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 Full range of motion of left arm. Neck ROM limited by pain Neuro: A&O x3, anxious and tearful Skin: intact, no lesions noted Results & Data Results & Data Vital Signs (Past 12 Hours) Vital Signs Temp Pulse Resp BP Pulse Ox O2 Del Method 11/29/23 07:30 36.3 C L 78 18 108/69 100 Room Air 11/29/23 02:06 36.6 C 78 16 121/81 98 Room Air Laboratory Results CBC and chemistry reviewed Diagnostic Findings MRI reviewed PG Care Time/CCT Total # of Minutes Spent Total Time Spent with Patient: Total time spent is greater than 50% in coordination of care (as documented) at patient's floor/unit and/or counseling patient: Coding Level of Care Code 71368 SUB INP/OBS CARE 3/50MIN Diagnoses Cervical herniated disc M50.20 GERD (gastroesophageal reflux disease) K21.9 Central hypothyroidism E03.8 Depression F32.9 Anxiety F41.9 Chronic constipation K59.09 History of hysterectomy Z90.710
[2023-11-29] MEDS: HYDROCODONE/ACETAMOPHEN 5/325MG TAB PO PRN ×2 (13:16→20:56)
[2023-11-29] MEDS: diazePAM 5 MG TABLET PO PRN ×2 (13:28→22:32)
[2023-11-29] MEDS: CYCLOBENZAPRINE HCL 10 MG TAB PO PRN (17:07)
[2023-11-29] MEDS: SIMVASTATIN 5 MG TAB PO SCH (21:01)
[2023-11-29] MEDS ORDERED: LIDOCAINE 5% 1 PATCH TD STA (23:59)
[2023-11-30] MEDS: CYCLOBENZAPRINE HCL 10 MG TAB PO PRN ×3 (00:44→19:55)
[2023-11-30] MEDS ORDERED: HYDROmorphone INJ 0.5 MG/0.5 ML SYR IV ONE (02:23)
[2023-11-30] MEDS: HYDROCODONE/ACETAMOPHEN 5/325MG TAB PO PRN ×3 (03:03→19:55)
[2023-11-30] MEDS: HYDROmorphone INJ 0.5 MG/0.5 ML SYR IV PRN ×3 (06:19→23:45)
[2023-11-30] MEDS: LEVOTHYROXINE SODIUM 75 MCG TABLET PO SCH (06:19)
[2023-11-30 06:47] LABS: Hematocrit (blood only) 32.2 % (37.0-47.0); Hemoglobin 10.7 g/dl (12.0-16.0); Mean Corpuscular Hemoglobin 30.9 pg (25.0-34.0); Mean Corpuscular Hgb Conc 33.2 g/dL (32.0-36.0); Mean Corpuscular Volume 93.1 fL (80.0-100.0); Mean Platelet Volume 10.5 fL (9.4-12.4); Platelet Count 215 K/uL (130-400); RDW Coefficient of Variation 13.2 % (11.5-14.5); RDW Standard Deviation 44.3 fL (36.4-46.3); Red Blood Count 3.46 M/uL (4.20-5.40); White Blood Count 8.47 K/ul (4.8-10.8)
[2023-11-30 06:55] LABS: Anion Gap 4 (3-11); BUN Creatinine Ratio 14.5 (10-20); Blood Urea Nitrogen 12 mg/dl (6-23); Calcium 8.3 mg/dl (8.6-10.3); Carbon Dioxide 30 mmol/L (21-32); Chloride 107 mmol/L (98-107); Est GFR (African American) 106.6 ml/min; Glucose 95 mg/dl (70-99(Fasting)); Potassium 3.6 mmol/L (3.5-5.1); Sodium 141 mmol/L (136-145)
[2023-11-30 07:09] LABS: Thyroid Stimulating Hormone 3.954 uIu/ml (0.300-4.500)
[2023-11-30] MEDS: buPROPion SR 150 MG TABCR PO SCH (08:33)
[2023-11-30] MEDS: linaCLOtide 72 MCG CAPSULE PO SCH (08:33)
[2023-11-30] MEDS: PANTOprazole 40 MG TAB PO SCH (08:33)
[2023-11-30] MEDS: ACETAMINOPHEN 500 MG TAB PO SCH ×3 (08:34→23:44)
[2023-11-30] MEDS: estradioL 1 MG TAB PO SCH (08:34)
[2023-11-30] MEDS: diazePAM 5 MG TABLET PO PRN (09:07)
--- NOTE | 2023-11-30 10:17 | Anesthesiology Consultation ---
Date of Service November 30, 2023 Assessment & Plan (1) Encounter for pre-operative examination: Chart Review Chart Review: Acceptable Risk for Surgery and Patient NOT seen in Pre Admission Testing Consults Requested none History Surgery Operation Date: 11/30/23 11:00 Proposed Procedures p Cervical Epidural Steroid Injection - Puneetaugustine Vásquez MD, FIPP Height/Weight Height: 5 ft 1 in Weight: 75.3 kg Allergies Allergy/AdvReac Type Severity Reaction Status Date / Time cefaclor [From [facility]] Allergy Mild Hives/Rash Verified 11/29/23 00:05 nickel Allergy Mild RASH, Verified 11/29/23 00:05 itch, skin irritation Medications Home Medications Medication Instructions Recorded Confirmed Last Taken Vitamin D, Zinc & Vitamin C 1 tab PO DAILY 11/28/23 11/29/23 Unknown bupropion HCl 150 mg tablet,12 hr 300 mg PO QAM 11/28/23 11/28/23 Unknown sustained-release cyclobenzaprine 10 mg tablet 10 mg PO DIRECTED PRN Muscle 11/28/23 11/28/23 Unknown Spasm estradiol 1 mg tablet 1 mg PO DAILY 11/28/23 11/28/23 Unknown famotidine 40 mg tablet 40 mg PO DAILY PRN Acid Reflux 11/28/23 11/29/23 Unknown hydrocodone 5 mg-acetaminophen 325 1 tab PO Q6 PRN Pain 11/28/23 11/29/23 Unknown mg tablet levothyroxine 75 mcg tablet 75 mcg PO DAILY 11/28/23 11/29/23 Unknown linaclotide 72 mcg capsule 72 mcg PO DAILY 11/28/23 11/29/23 Unknown (Linzess) naltrexone 50 mg tablet 50 mg PO DAILY 11/28/23 11/29/23 Unknown pantoprazole 40 mg tablet,delayed 40 mg PO DAILY 11/28/23 11/28/23 Unknown release prednisone 20 mg tablet 20 mg PO BID 11/28/23 11/28/23 Unknown simvastatin 5 mg tablet 5 mg PO HS 11/28/23 11/28/23 Unknown triamcinolone acetonide 0.1 % 1 applic topical DIRECTED PRN 11/28/23 11/28/23 Unknown topical cream .flare ups Active Medications Generic Name Dose Route Start Last Admin Trade Name Freq PRN Reason Stop Dose Admin Acetaminophen 500 mg 11/29/23 16:00 11/30/23 08:34 Acetaminophen 500 Mg Tab PO 12/29/23 15:59 500 mg Q8H MEENU Administration Hydrocodone Bitart/Acetaminophen 1 tab 11/29/23 12:29 11/30/23 08:29 Hydrocodone/Acetamophen 5/325mg Tab PO 12/13/23 12:28 1 tab Q6H PRN Administration Pain Bupropion HCl 300 mg 11/29/23 09:00 11/30/23 08:33 Bupropion Sr 150 Mg Tabcr PO 12/29/23 08:59 300 mg QAM MEENU Administration Cyclobenzaprine HCl 10 mg 11/29/23 12:40 11/30/23 00:44 Cyclobenzaprine Hcl 10 Mg Tab PO 12/29/23 01:55 10 mg TID PRN Administration Muscle Spasm Diazepam 5 mg 11/29/23 12:26 11/30/23 09:07 Diazepam 5 Mg Tablet PO 12/29/23 12:25 5 mg BID PRN Administration anxiety Estradiol 1 mg 11/29/23 09:00 11/30/23 08:34 Estradiol 1 Mg Tab PO 12/29/23 08:59 1 mg DAILY MEENU Administration Hydromorphone HCl 0.5 mg 11/29/23 00:34 11/30/23 06:19 Hydromorphone Inj 0.5 Mg/0.5 Ml Syr IV 12/13/23 00:33 0.5 mg Q6H PRN Administration Pain Ketorolac Tromethamine 15 mg 11/29/23 02:00 11/29/23 07:42 Ketorolac Tromethamine 15 Mg/Ml Vial IV 15 mg Q6H MEENU Administration Levothyroxine Sodium 75 mcg 11/29/23 06:30 11/30/23 06:19 Levothyroxine Sodium 75 Mcg Tablet PO 12/29/23 06:29 75 mcg DAILYBB MEENU Administration Linaclotide 72 mcg 11/29/23 09:00 11/30/23 08:33 Linaclotide 72 Mcg Capsule PO 12/29/23 08:59 72 mcg DAILY MEENU Administration Pantoprazole Sodium 40 mg 11/29/23 09:00 11/30/23 08:33 Pantoprazole 40 Mg Tab PO 12/29/23 08:59 40 mg DAILY MEENU Administration Polyethylene Glycol 17 gm 11/29/23 00:34 11/29/23 02:38 Polyethylene (Miralax) 17 Gm Pack PO 12/29/23 00:33 17 gm DAILY PRN Administration Constipation Simvastatin 5 mg 11/29/23 21:00 11/29/23 21:01 Simvastatin 5 Mg Tab PO 12/29/23 20:59 5 mg HS MEENU Administration Past Medical History Medical History Hyperlipidemia History of COVID-19 10/31/2021 - mild symptoms fatigue, sob and no current issues Chronic constipation GERD (gastroesophageal reflux disease) 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 she is tolerating thyroid medications Depression Anxiety Assessment & Plan (1) Cervical herniated disc: Plan: - Cspine MRI: C5-C6 moderated left sided disc herniation contacts the ventral cord, with borderline left central spinal stenosis and severe left lateral recess and left foraminal stenosis - Acute onset on 11/27 after moving bins of [employer] - given prednisone 40mg x1 - Ortho-spine consulted - Discussion of surgery vs injections, pt prefers injections first - Pain management consulted - Plan for cervical epidural steroid injection 11/30 - Pain control with Tylenol q8, [place] q6 prn and Dilaudid q6 prn - Flexeril 10mg TID prn - Valium prn for anxiety Past Surgical History Surgical History Hx of colonoscopy Hx of esophagogastroduodenoscopy History of tonsillectomy and adenoidectomy Hx of laparoscopy endometriosis, ovarian cystectomy Hx of exploratory laparotomy after c section hemorrhage second laparotomy to remove uterus, tubes, ovaries Hx of section complication due to bleeding, had laparotomy and could not find the source of bleeding and was lifeflighted to [place] - possible cardiac arrest on flight DIC and had muliple transfusions (34 units in 24 hrs) and was on vent and had intervention radiology procedure to repair right uterine artery and then EUA and found laceration on cervix and then repaired it. was stabilized that evening and the next day taken to OR for hysterectomy and tubes and ovaries were removed History of hysterectomy was post childbirth c section complication hemorrage Social History Smoking Status: Current every day smoker tobacco type: cigarettes Smoking cigarettes per day: 2-3 days Do You Dip or Chew Tobacco: No Hx Alcohol Use: Yes Alcohol type: beer and wine alcohol intake frequency: a few times a week Hx Substance Use: No substance use type: does not use Physical Exam Vital Signs Last Vital Signs Temp 36.3 C L 11/30/23 08:36 Pulse 69 11/30/23 08:36 Resp 20 11/30/23 08:36 BP 110/76 11/30/23 08:36 Pulse Ox 100 11/30/23 08:36 O2 Del Method Room Air 11/30/23 08:36 Testing Laboratory Results 11/30/23 06:13 11/30/23 06:13 Electrocardiogram Date: 11/29/23 Findings: + NSR @ (81) Normal sinus rhythm Incomplete right bundle branch block Nonspecific T wave abnormality Abnormal ECG When compared with ECG of 29-SEP-2021 13:18, Inverted T waves have replaced nonspecific T wave abnormality in Anterior leads Echocardiogram 09/2021: Normal ECHO
[2023-11-30] MEDS ORDERED: ePHEDrine sulfate 50 MG/ML AMP IV PRN (10:20)
[2023-11-30] MEDS ORDERED: ATROPINE SULFATE 0.1 MG/ML 10ML SYR IV PRN (10:20)
[2023-11-30] MEDS ORDERED: ONDANSETRON INJ 2 MG/ML 2 ML VIAL IV PRN (10:20)
[2023-11-30] MEDS ORDERED: PROMETHAZINE HCL 6.25 MG in SODIUM CHLORIDE 0.9% 50 ML IV PRN (10:20)
[2023-11-30] MEDS ORDERED: fentaNYL citrate PF 100 MCG/2 ML VIAL ONE (10:32)
[2023-11-30] MEDS ORDERED: MIDAZOLAM HCL 1 MG/ML 2ML VIAL ONE ×2 (10:32)
[2023-11-30] MEDS ORDERED: ONDANSETRON INJ 2 MG/ML 2 ML VIAL ONE (10:33)
--- NOTE | 2023-11-30 11:24 | History & Physical Bridge Note ---
Date of Service November 30, 2023 History & Physical Bridge Note Zehra Klein is a 33-year-old female with a history of left upper radicular symptoms that started 2 days ago inciting event. She rates the pain as being severe and is associated with numbness and paresthesias in the lateral aspect of the left arm. Further evaluation and imaging demonstrates a left C5-C6 disc herniation resulting in significant foraminal stenosis at this level. Her exam is consistent with radiculopathy. She has been evaluated by orthopedic spine surgeon and she wishes to try conservative approaches before surgery. She has been offered a interlaminar epidural steroid injection as a first step. If she notices minimal efficacy via interlaminar approach, she will undergo C5/C6 left- sided transforaminal epidural steroid next week in the outpatient setting. In the preop area, the procedure described to her in detail and her questions were answered. She is informed of the procedure related complications such as infection, bleeding, nerve injury, postdural puncture headache, and failure to relieve her symptoms. She understand the risks and consents to proceed. No contraindications are noted.
--- NOTE | 2023-11-30 11:27 | Hospitalist Progress Note ---
Date of Service November 30, 2023 Assessment & Plan (1) Cervical herniated disc: Plan: - Cspine MRI: C5-C6 moderated left sided disc herniation contacts the ventral cord, with borderline left central spinal stenosis and severe left lateral recess and left foraminal stenosis - Acute onset on 11/27 after moving bins of [employer] - given prednisone 40mg x1 - Ortho-spine consulted - Discussion of surgery vs injections, pt prefers injections first - Pain management consulted - Plan for cervical epidural steroid injection 11/[address] Alaniz - Recommends oral analgesics and gabapentin at discharge - Inpatient pain control with Tylenol q8, [place] q6 prn and Dilaudid q6 prn, Flexeril 10mg TID prn (2) GERD (gastroesophageal reflux disease): Plan: - continue home PPI and famotidine (3) Central hypothyroidism: Plan: - continue home levothyroxine 75 mcg TSH 3.9 (4) Depression: Plan: Continue Wellbutrin (5) Anxiety: Plan: Continue Wellbutrin -worsened by inpatient stay, pain and medical hx - continues to decline behavioral health liason consult -episode of chest pain 11/29 likely related to anxiety (6) Chronic constipation: Plan: Continue Linzess PRN miralax (7) History of hysterectomy: Plan: 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 - continue home estradiol 1 mg Plan DVT proh: low risk Dispo: had injection today, stable for discharge, patient would like to reevaluate her pain this afternoon. Possible discharge later today otherwise suspect tomorrow Admission and Anticipated Discharge Date Admission Date: November 29, 2023 Supervising Physician Co-Signing Physician Notes Attending Attestation - Chart reviewed, care plan d/w DAMARI Del Angel. I agree w/ the kc components of her documentation. Jayson Bush MD Subjective patient seen resting in bed, prior to going down to the OR. Had an episode of chest pain last night that started in her back and radiated down to the front, resolved spontaneously. I evaluated her at that time no diaphoresis or shortness of breath. EKG with no acute findings, troponin was negative. I reassured patient of this. She has had no further episodes of chest pain. This morning reports that her pain is well-controlled, had poor control overnight requiring an extra dose of Dilaudid. Is anxious regarding your procedure this morning and her overall prognosis. Had Valium shortly before my arrival. Has not moved her bowels, but will take another dose of MiraLAX when she is no longer NPO. Urinating without issue. Ambulating independently. Review of Systems Review of Systems: All systems reviewed & are unremarkable except as noted in Subjective Physical Exam Physical Exam: General: clearly in pain, tearful at times, VS as above Resp: normal respiratory effort, lungs clear to auscultation CV: RRR, no murmur, Abd: normal bowel sounds, non tender, no hepatosplenomegaly vertical scar Extremities: Moves all extremities. Full range of motion of left arm. Neck ROM limited by pain. No lower extremity edema Neuro: A&O x3, anxious and tearful Skin: intact, no lesions noted Results & Data Results & Data Vital Signs (Past 12 Hours) Vital Signs Temp Pulse Resp BP Pulse Ox O2 Del Method 11/30/23 10:45 36.8 C 83 18 130/93 97 Room Air 11/30/23 08:36 36.3 C L 69 20 110/76 100 Room Air Laboratory Results CBC, chemistry, troponin, TSH reviewed PG Care Time/CCT Total # of Minutes Spent Total Time Spent with Patient: Total time spent is greater than 50% in coordination of care (as documented) at patient's floor/unit and/or counseling patient: Coding Level of Care Code 42029 SUB INP/OBS CARE 2/35MIN Diagnoses Cervical herniated disc M50.20 GERD (gastroesophageal reflux disease) K21.9 Central hypothyroidism E03.8 Depression F32.9 Anxiety F41.9 Chronic constipation K59.09 History of hysterectomy Z90.710
--- NOTE | 2023-11-30 11:57 | Operative Report ---
Post Operative Report Pre & Post Diagnosis Operation Date: 11/30/23 11:00 Pre-Op Diagnosis: Cervical herniated disc, c5-c6 with left upper extremitiy radiculopathy Post-Op Diagnosis: Same I identified the patient and participated in the time-out.: Yes Procedure Operation Date: 11/30/23 11:00 Actual Procedures C7/T1 cervical Epidural Steroid Injection- Puneet Vásquez MD, KHADIJAH Surgeon Puneet Vásquez MD, KHADIJAH [employer] None Estimated Blood Loss 0 Findings Consistent with Post-Op Diagnosis Specimens None Drains None Anesthesia Type MAC Complications none Disposition Accompanied Patient To Recovery: No Disposition: Recovery Room Description of Procedure CERVICAL INTERLAMINAR EPIDURAL STEROID INJECTION Diagnosis: C5/C6 Herniated disc wit left arm radiculitis. Level injected: C7-T1 Surgeon: Dr. Vásquez Prior to starting, the Patients diagnosis and the procedure were reviewed with the patient in detail. Possible risks and complications including infection, bleeding, damage to surrounding structures and increased pain were discussed. Alternative therapies were also reviewed. Patients questions were answered and they agreed to proceed. Informed consent was obtained. Allergies and medication list was reviewed. The patient was brought to the procedure room and placed in prone position. Immediately prior to starting the procedure, a ``time out was conducted with the staff and the patient where the patient was identified, proposed procedure was verified, consent was reviewed and the proper site for the planned procedure was identified. Monitors used included intermittent blood pressure with automated device, continuous pulse oximetry and level of consciousness. Patient was not given any intravenous sedation and constant verbal contact was maintained throughout the procedure. Fluoroscopy was utilized in performing the procedure to assist the placement of the needle, to evaluate the final position of the needle prior to injection and to avoid intravascular injection. On examination, no signs of skin breakdown or infection were noted at the injection site. The site was cleansed with DuraPrep followed by Betadine. Sterile drapes were applied. A true AP view of C7/T1 interspace was obtained. Superior endplate of T1 vertebral was aligned. 1 cc, 1% Xylocaine was infiltrated in the skin and subcutaneous tissues using a 25 gauge needle. A 20 gauge, 3.5 inch Tuohy needle was then inserted through the anesthetized area and advanced in a coaxial manner to the fluoroscope. C-arm rotated to obtain a true lateral view and the needle was passed through the ligamentum flavum into the epidural space via midline approach with loss of resistance technique with air. Upon entering the epidural space the patient did not experience pain or paresthesia. No blood or CSF noted. Bevel of the needle was directed in the cephalad direction. 6 inch micro bore tubing was attached to the needle and aspiration via the needle demonstrated no CSF or blood. In a lateral view, 1cc Isovue 300 contrast was injected via the needle under live fluoroscopy. The contrast was noted to be in the dorsal epidural space. No subarachnoid spread of contrast was noted. An oblique view demonstrated contrast in epidural space. Finally, an AP view was then checked and additional 1cc of the contrast was injected under live fluoroscopy. Neither subdural or subarachnoid spread nor intravascular uptake was noted on plain fluoroscopy. No vascular uptake was noted on a 10 second run of digital subtraction angiography at a rate of 8 fps. Next, 80 mg (2 mL) Kenalog followed by 4 mL of preservative free normal saline and was injected via the epidural needle gradually. Patient did not experience any pain, paresthesia or discomfort throughout the injection period. Needle was withdrawn. Adequate hemostasis was noted. A sterile Band-Aid was applied at the injection site. Patient was then placed in sitting position. Patient was monitored for additional 30 minutes in the waiting area and discharged with an accompanying adult. Discharge instructions were reviewed with the Patient. Any specific questions were answered. Emergency phone numbers and contact information was relayed. Patient voiced understanding of the instructions. Follow-up appointment has been scheduled. I attest to the content of the Intraoperative Record and any orders documented therein. Any exceptions are noted below.
[2023-11-30] MEDS ORDERED: LIDOCAINE 1% MPF 5 ML VIAL INJ ONE (12:02)
[2023-11-30] MEDS ORDERED: IOPAMIDOL INJ 61% 15 ML VIAL INJ ONE (12:04)
[2023-11-30] MEDS ORDERED: TRIAMCINOLONE ACET 40 MG/ML VIAL IM ONE (12:07)
--- NOTE | 2023-11-30 12:07 | Pain Management Progress Note ---
Date of Service November 30, 2023 Assessment & Plan (1) Herniation of cervical intervertebral disc with radiculopathy: Plan: * Underwent C7/T1 cervical epidural steroid injection. * Patient can be discharged on oral analgesics and gabapentin as her symptoms improved. * She was seen in many pain management clinic in 1 week for follow-up evaluation at which time if her symptoms remain, she will undergo left-sided C5/C6 transforaminal epidural steroid injection in the office. Present on Admission?: Yes Admission and Anticipated Discharge Date Admission Date: November 29, 2023 Gia Ahn continues experience left upper extremity radicular pain. She just underwent cervical epidural steroid C7/T1 uneventfully with sedation.
[2023-11-30] MEDS: fentaNYL citrate PF 100 MCG/2 ML VIAL IV PRN ×2 (12:09→12:15)
--- NOTE | 2023-11-30 13:22 | Anesthesiology Progress Note ---
Date of Service November 30, 2023 Anesthesia Post Procedure Vital Signs Vital Signs: Temp Pulse Pulse Resp BP Pulse Ox O2 Del Method 11/30/23 12:58 36.7 C 77 16 111/76 97 Room Air 11/30/23 12:35 74 20 119/86 96 Room Air 11/30/23 12:25 36.6 C 73 20 121/78 97 Room Air 11/30/23 12:15 76 20 116/79 96 Room Air 11/30/23 12:05 80 20 116/84 99 Room Air 11/30/23 11:58 36.5 C 83 15 124/76 99 Room Air 11/30/23 10:45 36.8 C 83 18 130/93 97 Room Air 11/30/23 08:36 36.3 C L 69 20 110/76 100 Room Air 11/29/23 21:58 36.4 C L 70 16 115/76 98 Room Air 11/29/23 18:23 36.5 C 104 H 16 141/97 H 100 Room Air 11/29/23 14:53 36.5 C 80 16 118/78 99 Room Air Pain Intensity Shoulder: Pain Intensity: 6 Transfer of Care Handoff Completed per policy Notes Mental Status: alert / awake / arousable and participated in evaluation Patient Amnestic to Procedure: Yes Nausea / Vomiting: adequately controlled Pain: adequately controlled Airway Patency, RR, SpO2: stable & adequate BP & HR: stable & adequate Hydration State: stable & adequate Anesthetic Complications: no major complications apparent and Pt Satisfied with anesthetic care
[2023-11-30] MEDS: GABAPENTIN 100 MG CAP PO SCH ×2 (15:51→19:55)
--- NOTE | 2023-11-30 18:57 | Electrocardiogram Report ---
Test Reason : Blood Pressure : / mmHG Vent. Rate : 081 BPM Atrial Rate : 081 BPM P-R Int : 160 ms QRS Dur : 114 ms QT Int : 372 ms P-R-T Axes : 052 038 022 degrees QTc Int : 432 ms Normal sinus rhythm Incomplete right bundle branch block Nonspecific T wave abnormality Abnormal ECG When compared with ECG of 29-SEP-2021 13:18, No significant change Confirmed by Trey Akhtar ([id number]) on 11/30/2023 6:56:46 PM Referred By: REFERRED SELF Confirmed By:Trey Akhtar
[2023-11-30] MEDS: SIMVASTATIN 5 MG TAB PO SCH (19:55)
[2023-11-30] MEDS: POLYETHYLENE (MIRALAX) 17 GM PACK PO PRN (19:55)
[2023-12-01] MEDS: HYDROCODONE/ACETAMOPHEN 5/325MG TAB PO PRN ×4 (03:05→23:15)
[2023-12-01] MEDS: LEVOTHYROXINE SODIUM 75 MCG TABLET PO SCH (04:59)
[2023-12-01] MEDS: HYDROmorphone INJ 0.5 MG/0.5 ML SYR IV PRN (06:02)
[2023-12-01] MEDS: linaCLOtide 72 MCG CAPSULE PO SCH (07:57)
[2023-12-01] MEDS: GABAPENTIN 100 MG CAP PO SCH ×3 (07:57→21:28)
[2023-12-01] MEDS: buPROPion SR 150 MG TABCR PO SCH (07:57)
[2023-12-01] MEDS: ACETAMINOPHEN 500 MG TAB PO SCH ×2 (07:57→17:01)
[2023-12-01] MEDS: PANTOprazole 40 MG TAB PO SCH (07:57)
[2023-12-01] MEDS: estradioL 1 MG TAB PO SCH (07:58)
[2023-12-01] MEDS: POLYETHYLENE (MIRALAX) 17 GM PACK PO PRN ×2 (08:04→21:28)
--- NOTE | 2023-12-01 08:31 | Orthopedic Progress Note ---
Date of Service December 01, 2023 Assessment & Plan (1) Herniation of cervical intervertebral disc with radiculopathy: Plan: Tiny has HNP C5-6 on the left. She received cervical injection by Dr. Alaniz yesterday. Notes improvement. She is hopeful to be discharged and avoid surgical intervention. She stable from a spine standpoint for discharge. Follow-up as needed. Admission and Anticipated Discharge Date Admission Date: November 29, 2023 Gia Worley received a cervical epidural injection by Dr. Alaniz yesterday. This mo rning she reports about 30% improvement. Still has left upper extremity pain, paresthesia and numbness. No other complaints. She is hopeful for discharge home. She has scheduled follow-up with pain management on Sunday. She is trying to avoid surgical intervention. Review of Systems Review of Systems: All systems reviewed & are unremarkable except as noted in HPI & below Physical Exam Physical Exam: She sitting up in bed eating breakfast no acute distress Upper extremities unchanged Results & Data Vital Signs (Past 12 Hours) Vital Signs Temp Pulse Pulse Resp BP Pulse Ox O2 Del Method 12/01/23 07:31 36.6 C 82 16 113/72 98 Room Air 11/30/23 23:37 36.4 C L 72 16 117/77 98 Room Air
[2023-12-01] MEDS: CYCLOBENZAPRINE HCL 10 MG TAB PO PRN (12:07)
--- NOTE | 2023-12-01 12:19 | Hospitalist Progress Note ---
Date of Service December 01, 2023 Assessment & Plan (1) Cervical herniated disc: Plan: - Cspine MRI: C5-C6 moderated left sided disc herniation contacts the ventral cord, with borderline left central spinal stenosis and severe left lateral recess and left foraminal stenosis - Acute onset on 11/27 after moving bins of [employer] - given prednisone 40mg x1 - Ortho-spine consulted - Discussion of surgery vs injections, pt prefers injections first - Pain management consulted - Plan for cervical epidural steroid injection 11/[address] Alaniz - Recommends oral analgesics and gabapentin at discharge - Inpatient pain control with Tylenol q8, gabapentin TID, [place] q6 prn and Dilaudid q6 prn, Flexeril 10mg TID prn - has follow-up appointment scheduled 12/07 12/01: plan to increase gabapentin to 200 mg 3 times daily and increased dose of oxycodone, with hopes to no longer need IV Dilaudid (2) GERD (gastroesophageal reflux disease): Plan: - continue home PPI and famotidine (3) Central hypothyroidism: Plan: - continue home levothyroxine 75 mcg TSH 3.9 (4) Depression: Plan: Continue Wellbutrin (5) Anxiety: Plan: Continue Wellbutrin -worsened by inpatient stay, pain and medical hx - continues to decline behavioral health liason consult -episode of chest pain 11/29 likely related to anxiety (6) Chronic constipation: Plan: Continue Linzess PRN miralax (7) History of hysterectomy: Plan: 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 - continue home estradiol 1 mg Plan DVT proh: low risk Dispo: stable for discharge, patient would like to reevaluate her pain this afternoon. Possible discharge later today otherwise suspect tomorrow Admission and Anticipated Discharge Date Admission Date: November 29, 2023 Supervising Physician Co-Signing Physician Notes Attending Attestation - Chart reviewed, care plan d/w DAMARI Del Angel. I agree w/ the kc components of her documentation. Jayson Bush MD Subjective patient seen ambulating in room, eventually lays back down in bed. States her pain is better but still has flares. Reports overnight was the worst, did require IV Dilaudid. Is very anxious to go home and see her son, but is concerned about pain control and having to return promptly to the ER. Her appetite is improving. She was able to get some sleep last night, But did have episodes of pain that awoke her from her sleep. Does feel like the gabapentin is helping. Review of Systems Review of Systems: All systems reviewed & are unremarkable except as noted in Subjective Physical Exam Physical Exam: General: appears less painful than previous days, looks well, no acute distressVS as above Resp: normal respiratory effort, lungs clear to auscultation CV: RRR, no murmur, Extremities: Moves all extremities. Full range of motion of left arm. Neck ROM limited by pain, but improved. No lower extremity edema Neuro: A&O x3, anxious Skin: intact, no lesions noted Results & Data Results & Data Vital Signs (Past 12 Hours) Vital Signs Temp Pulse Resp BP Pulse Ox O2 Del Method 12/01/23 07:31 36.6 C 82 16 113/72 98 Room Air PG Care Time/CCT Total # of Minutes Spent Total Time Spent with Patient: Total time spent is greater than 50% in coordination of care (as documented) at patient's floor/unit and/or counseling patient: Coding Level of Care Code 71327 SUB INP/OBS CARE 2/35MIN Diagnoses Cervical herniated disc M50.20 GERD (gastroesophageal reflux disease) K21.9 Central hypothyroidism E03.8 Depression F32.9 Anxiety F41.9 Chronic constipation K59.09 History of hysterectomy Z90.710
[2023-12-01] MEDS: SIMVASTATIN 5 MG TAB PO SCH (21:28)
[2023-12-02] MEDS: ACETAMINOPHEN 500 MG TAB PO SCH ×2 (00:34→07:49)
[2023-12-02] MEDS: CYCLOBENZAPRINE HCL 10 MG TAB PO PRN (04:12)
[2023-12-02] MEDS: LEVOTHYROXINE SODIUM 75 MCG TABLET PO SCH (04:12)
[2023-12-02] MEDS: buPROPion SR 150 MG TABCR PO SCH (07:49)
[2023-12-02] MEDS: estradioL 1 MG TAB PO SCH (07:49)
[2023-12-02] MEDS: GABAPENTIN 100 MG CAP PO SCH (07:50)
[2023-12-02] MEDS: PANTOprazole 40 MG TAB PO SCH (07:51)
[2023-12-02] MEDS: linaCLOtide 72 MCG CAPSULE PO SCH (07:51)
[2023-12-02] MEDS: POLYETHYLENE (MIRALAX) 17 GM PACK PO PRN (08:04)
[2023-12-02] MEDS ORDERED: oxyCODONE HCL IR 5 MG TAB (IMMEDIATE RELEASE) PO PRN (08:05)
--- NOTE | 2023-12-02 08:39 | Orthopedic Progress Note ---
Date of Service December 02, 2023 Assessment & Plan (1) Herniation of cervical intervertebral disc with radiculopathy: Plan: Patient is trying to continue with conservative treatment. She has follow-up with pain management scheduled for the end of the week including a possible injection next Sunday. Should she decline and want to pursue surgical intervention, she will notify our office. Will sign off Admission and Anticipated Discharge Date Admission Date: November 29, 2023 Subjective Pain is slightly improved involving left upper extremity. She has not required IV pain medication since Sunday. She is anxious to return home. Review of Systems Review of Systems: All systems reviewed & are unremarkable except as noted in HPI & below Physical Exam Physical Exam: She sitting in bed in with shoulder abduction sign on the left Alert and oriented x 3 Strength unchanged bilateral upper extremities Results & Data Vital Signs (Past 12 Hours) Vital Signs Temp Pulse Pulse Resp BP Pulse Ox O2 Del Method 12/02/23 07:48 36.7 C 73 16 123/83 96 Room Air 12/01/23 21:03 36.6 C 84 19 115/76 98 Room Air
--- NOTE | 2023-12-02 10:36 | Discharge Summary ---
Discharge Summary Date of Service December 02, 2023 Notes For Next Care Provider -please monitor for increased anxiety -Pain control regiment as below. Patient has pain management visit on Sunday for possible repeat injection - Considering surgery if conservative management does not help Medication Changes From Visit Discharged with the following pain regiment - Tylenol 1000mg every 8 hours - Gabapentin 200 mg three times a day (you can take 100 mg in the morning and afternoon if you noticed sedating side effects) - Flexeril 10mg three times a day as needed for muscle spasms - Oxycodone 5mg every 6 hours as needed for pain - Continue heat and ice as needed. Admission HPI Per Admitting Provider Pt is a 33 yo female with PMH of hypothyroidism, HLD, GERD, and depression/anxiety presenting to the ER d/t increased neck/shoulder pain. Pt states she woke up yesterday morning with left shoulder pain similar to a muscle spasm. She had numbness/tingling that radiated down her arm. She saw a chiropractor d/t this pain and he referred her to the [facility] ER; they gave her a muscle relaxer and steroid and discharged her home. She returned to her chiropractor who performed cervical traction and a gentle adjustment which helped in the moment but the pain came back upon sitting up. She went back to her chiropractor today and he again did cervical traction. This again helped in the moment but the pain came back after sitting up. She was in contact with her PCP who advised her to come to the ER for further work up. Since then, her pain has been worsening and unbearable at points. She is uncomfortable in a sitting position. Sometimes the pain is relieved when her hand is over her head, but now she is also experiencing a dull ache in this p osition. Upon further reflection, she is wondering if putting away her [place] decorations on Sunday contributed to her current pain. She was on a 5-step ladder reaching to a shelf above her head and she would put the storage totes on top of her head to transfer them. Otherwise, no injury noted. No hx of neck/spine problems. In the ER, pt was hemodynamically stable. Her lab work was significant for WBC 12.38, Hgb 12.1, platelets 285, and K 3.1. An MRI of her cervical spine showed a left sided disc herniation at C5-C6 with borderline central spinal stenosis. There were degenerative changes noted at C4-C5 and C6-C7. Pt was given valium 5 mg, dilaudid 0.25mg x3, dilaudid 0.5mg, zofran 4 mg, dexamethasone 10 mg, toradol 10 mg, and tylenol 500 mg. Principal Dx & Hospital Course #1 = Principal Diagnosis (1) Cervical herniated disc: - Cspine MRI: C5-C6 moderated left sided disc herniation contacts the ventral c ord, with borderline left central spinal stenosis and severe left lateral recess and left foraminal stenosis - Acute onset on 11/27 after moving bins of [employer] - Ortho-spine consulted - Discussion of surgery vs injections, pt prefers injections first - Pain management consulted - Received cervical epidural steroid injection 11/[address] Alaniz - has follow-up appointment scheduled 12/07 Discharged on the following pain regiment: - Tylenol 1000mg every 8 hours - Gabapentin 200 mg three times a day (you can take 100 mg in the morning and afternoon if you noticed sedating side effects) - Flexeril 10mg three times a day as needed for muscle spasms - Oxycodone 5mg every 6 hours as needed for pain - Continue heat and ice as needed. (2) GERD (gastroesophageal reflux disease): - continue home PPI and famotidine (3) Central hypothyroidism: - continue home levothyroxine 75 mcg TSH 3.9 (4) Depression: Continue home Wellbutrin (5) Anxiety: Continue Wellbutrin -episode of chest pain 11/29 likely related to anxiety -Declined behavioral health liaison consult while inpatient Offered prn buspar but she declined. Should have low threshold for increasing regiment if continued increased anxiety during sub-acute illness (6) Chronic constipation: Continue Linzess PRN miralax Pt aware that conspitation likely worsened by narcotic use. (7) History of hysterectomy: Hx hysterectomy and oophorectomy - continue home estradiol 1 mg Plan Discharge to home, pain management follow up on Sunday Discharge Exam General: NAD, affect improved from previous days, VS as above Resp: normal respiratory effort, lungs clear to auscultation CV: RRR, no murmur, Abd: normal bowel sounds, non tender, no hepatosplenomegaly Extremities: Moves all extremities, able to raise left arm over head Neuro: A&O x3, Updated Medication List Medication Instructions Recorded Confirmed Type Vitamin D, Zinc & Vitamin C 1 tab PO DAILY 11/28/23 11/29/23 History bupropion HCl 150 mg tablet,12 hr 300 mg PO QAM 11/28/23 11/28/23 History sustained-release estradiol 1 mg tablet 1 mg PO DAILY 11/28/23 11/28/23 History famotidine 40 mg tablet 40 mg PO DAILY PRN Acid Reflux 11/28/23 11/29/23 History levothyroxine 75 mcg tablet 75 mcg PO DAILY 11/28/23 11/29/23 History linaclotide 72 mcg capsule 72 mcg PO DAILY 11/28/23 11/29/23 History (Linzess) naltrexone 50 mg tablet 50 mg PO DAILY 11/28/23 11/29/23 History pantoprazole 40 mg tablet,delayed 40 mg PO DAILY 11/28/23 11/28/23 History release simvastatin 5 mg tablet 5 mg PO HS 11/28/23 11/28/23 History triamcinolone acetonide 0.1 % 1 applic topical DIRECTED PRN 11/28/23 11/28/23 History topical cream .flare ups acetaminophen 500 mg tablet 1,000 mg (2 x 500 mg) PO Q8 30 12/02/23 Rx (Tylenol Extra Strength) days #180 tabs cyclobenzaprine 10 mg tablet 10 mg PO TID PRN Muscle Spasm 14 12/02/23 Rx days #42 tabs gabapentin 100 mg capsule 200 mg (2 x 100 mg) PO TID 14 days 12/02/23 Rx #84 caps oxycodone 5 mg tablet 5 mg PO Q6H PRN Pain 7 days #28 12/02/23 Rx tabs polyethylene glycol 3350 17 gram 17 g PO DAILY PRN Constipation 10 12/02/23 Rx oral powder packet (Miralax) days #10 ea Hospital Stay Data Consultations 11/28/23 23:47 ED Decision to Admit Stat 11/29/23 00:39 Consult Orthopedic Spine Surgery Routine 11/29/23 01:23 Consult Pain Management Routine Procedures Performed Operation Date: 11/30/23 11:00 Actual Procedures p Cervical Epidural Steroid Injection(Not Applicable) - Puneet Vásquez MD, FIPP Diagnostic Imagining Performed 11/28/23 17:30 MR cervical spine wo con Stat 11/30/23 11:00 FL fluoro for pain procedure Routine Pending Results Patient Have Any Pending Studies at Discharge: No Discharge Instructions Given to Patient (Per Discharging Provider) Ms. Cruz, Andrae were hospitalized after having herniated disc at the C5-C6 level and central spinal stenosis. During your stay, you received a cervical epidural steroid injection with Dr. Vásquez. You were also evaluated by ortho spine, Dr. Cotton for discussion of surgical management. You will be discharged on the following pain regiment: - Tylenol 1000mg every 8 hours - Gabapentin 200 mg three times a day (you can take 100 mg in the morning and afternoon if you noticed sedating side effects) - Flexeril 10mg three times a day as needed for muscle spasms - Oxycodone 5mg every 6 hours as needed for pain - Continue heat and ice as needed. If your pain is uncontrolled with this regiment, you should contact the pain management doctors or return to the ER. As we discussed, the narcotics can worsen your constipation. You should continue your Linzess and Miralax until your bowels are regular. You can also use other OTC stool softeners/laxatives. We did not change any of your other home medications. If you continued to have increased anxiety, I would recommend that you talk to your PCP about increasing your anti-anxiety regiment. If you have any new chest pain or shortness of breath please return to the ER. Please keep your follow up with pain management next week. It was our pleasure taking care of you, Grace Del Angel PA-C Total Time Total Time Spent Total Time Spent (In Minutes): Time spend day of discharge 40 minutes including direct patient care, medication reconciliation, documentation, review of labs and images, and coordination of care. Coding Level of Care Code 64865 INP/OBS DISCH >30 MIN Diagnoses Cervical herniated disc M50.20 GERD (gastroesophageal reflux disease) K21.9 Central hypothyroidism E03.8 Depression F32.9 Anxiety F41.9 Chronic constipation K59.09 History of hysterectomy Z90.710
[2023-12-02] MEDS ORDERED: ACETAMINOPHEN 500 MG TAB PO SCH (14:00)
== END 2023-12-02 12:28 | disposition home or self-care (01) | DRG 552 ==
LOC: ED 17:14 → SUATTDRO 11-29 00:35 → 3E 11-29 00:35